=== PATIENT | male | born 2005 | race Caucasian/White ===

== ENCOUNTER 2023-12-27 15:20 | Emergency (ER) | payer OTHER ==
[~2023-12-27] VITALS: Ht 172.7 cm; Wt 65.8 kg
[2023-12-27 15:36] VITALS: BP_SYST 121; PULSE 67; RESP 18; TEMP 97.7; O2SAT 100
[2023-12-27 16:17] LABS: BILIRUBIN,URINE NEGATIVE (NEGATIVE); BLOOD, URINE NEGATIVE (NEGATIVE); CLARITY/URINE CLEAR (CLEAR); COLOR,URINE YELLOW (YELLOW); GLUCOSE,URINE NEGATIVE (NEGATIVE); KETONES,URINE NEGATIVE (NEGATIVE); LEUKOCYTE ESTERASE ,URINE NEGATIVE (NEGATIVE); NITRITE, URINE NEGATIVE (NEGATIVE); PROTEIN URINE NEGATIVE (NEGATIVE); UROBILINOGEN,URINE 0.2 (0.2-1.0)
[2023-12-27 16:48] LABS: INFLUENZA TYPE A Negative (NEGATIVE); INFLUENZA TYPE B NEGATIVE (NEGATIVE)
[2023-12-27] MEDS ORDERED: DICL20GE TP (17:08)
[2023-12-27] MEDS ORDERED: IBUP-1969 PO (17:08)
[2023-12-27 17:16] VITALS: BP_SYST 121; PULSE 67; RESP 18; TEMP 98.2; O2SAT 100
[2023-12-27] MEDS: KETOROLAC TROMETHAMINE 60 MG/2 ML VIAL IM ONE (17:17)
== END 2023-12-27 17:15 | disposition home or self-care (01) ==
LOC: SED 15:20
DX: S39.011A Strain of muscle, fascia and tendon of abdomen, initial encounter (principal); S76.011A Strain of muscle, fascia and tendon of right hip, initial encounter; Z79.899 Other long term (current) drug therapy; Z20.822 Contact with and (suspected) exposure to COVID-19; X58.XXXA Exposure to other specified factors, initial encounter; Y93.89 Activity, other specified; Y92.89 Other specified places as the place of occurrence of the external cause; Y99.8 Other external cause status
CPT/HCPCS: 36415; 72170-TC; 73502; 81001; 81003; 99284